=== PATIENT | male | born 1955 | race Caucasian/White ===

== ENCOUNTER → 2018-07-22 | Outpatient (CLI) | payer BC ==
[~2018-07-22] MED LIST: ASPIRIN 81M81 MG/TA2 PO
== END ==
LOC: COL.RAD 10:06
DX: E06.9 Thyroiditis, unspecified (principal)

== ENCOUNTER → 2018-12-14 | Outpatient (CLI) | payer BC | LOC: COL.RAD 13:06 | DX: E03.8 Other specified hypothyroidism (principal) | CPT/HCPCS: A9585 ==

== ENCOUNTER → 2019-07-04 | Outpatient (CLI) | payer BC | LOC: COL.RAD 08:15 | DX: E04.1 Nontoxic single thyroid nodule (principal) ==